=== PATIENT | male | born 1985 | race Hispanic/Latino ===

== ENCOUNTER 2022-02-11 18:32 | Inpatient (IN) | payer SELFPAY ==
[~2022-02-11] VITALS: Ht 167.6 cm; Wt 72.3 kg
[2022-02-11 19:23] LABS: BASOPHILS % 0.7 % (0.0-1.0); HEMATOCRIT 26.3 % (38.2-49.6); HEMOGLOBIN 7.7 g/dL (14.0-18.0); LYMPHOCYTES # (AUTO) 0.6 (1.0-3.2); MEAN CORPUSCULAR HEMOGLOBIN 20.3 pg (28-32); MEAN CORPUSCULAR HGB CONC 29.3 g/dL (31-35); MEAN CORPUSCULAR VOLUME 69.4 fL (81-99); MONOCYTES # (AUTO) 0.3 (0.2-0.8); MONOCYTES % 8.2 % (4.4-11.3); NEUTROPHILS # (AUTO) 3.2 (2.1-6.9); NEUTROPHILS % 76.9 % (38.7-80.0); PLATELET COUNT 65 x10e3/uL (140-360); RED BLOOD COUNT 3.79 x10e6/uL (4.3-5.7); RED CELL DISTRIBUTION WIDTH 22.7 % (11.7-14.4)
[2022-02-11 19:28] LABS: INR 1.64; PARTIAL THROMBOPLASTIN TIME 29.6 seconds (23.8-35.5); PROTHROMBIN TIME 20.8 seconds (11.9-14.5)
[2022-02-11 19:40] LABS: ALBUMIN 2.2 g/dL (3.5-5.0); ALBUMIN/GLOBULIN RATIO 0.8 (0.8-2.0); ANION GAP 12.2 mmol/L (8-16); CREATININE, SERUM 0.74 mg/dL (0.72-1.25); POTASSIUM 4.2 mmol/L (3.5-5.1)
[2022-02-11] MEDS: OCTREOTIDE ACETATE 500 MCG in SODIUM CHLORIDE 0.9% 250ML 250 ML IV SCH (19:55)
[2022-02-11 19:56] LABS: CALCIUM 6.9 mg/dL (8.4-10.2)
[2022-02-11] MEDS ORDERED: IOPAMIDOL 370 MG/ML 100 ML INFUS..BTL INJ ONE (20:31)
[2022-02-11] MEDS ORDERED: SODIUM CHLORIDE 0.9% 250ML 250 ML IV ONE (22:30)
[2022-02-11] MEDS ORDERED: POTASSIUM CHLORIDE 20 MEQ TAB CR PO PRN (23:00)
[2022-02-11] MEDS ORDERED: DIPHENHYDRAMINE HCL 25 MG CAP PO PRN (23:00)
[2022-02-11] MEDS ORDERED: DEXTROSE 50% SYRINGE 50 ML IV PRN (23:00)
[2022-02-11] MEDS ORDERED: ONDANSETRON HCL INJ 2MG/ML 2ML 2 MG/ML VIAL IV PRN (23:00)
[2022-02-11] MEDS ORDERED: MELATONIN 5 MG TABLET PO PRN (23:00)
[2022-02-11] MEDS ORDERED: BENZONATATE 100 MG CAP PO PRN (23:00)
[2022-02-11] MEDS ORDERED: SIMETHICONE 80 MG CHEW PO PRN (23:00)
[2022-02-11] MEDS ORDERED: HYDRALAZINE HCL 20 MG/ML VIAL IV PRN (23:00)
[2022-02-11] MEDS ORDERED: DOCUSATE SODIUM 100 MG CAP PO PRN (23:00)
[2022-02-11] MEDS ORDERED: ALBUTEROL/IPRATROPIUM 3 ML NEB NEB PRN (23:00)
[2022-02-11] MEDS ORDERED: PHYTONADIONE 10 MG/ML AMP SQ ONE (23:00)
[2022-02-12] VITALS (43 sets, daily range): BP systolic 86–121; BP diastolic 44–89
[2022-02-12] MEDS ORDERED: ALBUMIN 25% 25GM 100ML 0.25 GM/ML BTL IV SCH
[2022-02-12] MEDS ORDERED: SODIUM CHLORIDE 0.9% 250ML 250 ML ONE ×3 (00:02→06:26)
[2022-02-12] MEDS: SODIUM CHLORIDE 0.9% 1000ML 1,000 ML IV SCH ×2 (00:09→06:35)
[2022-02-12 00:29] LABS: HEMATOCRIT 23.6 % (38.2-49.6)
[2022-02-12 00:30] LABS: HEMOGLOBIN 6.9 g/dL (14.0-18.0)
[2022-02-12] MEDS ORDERED: [UNRECOGNIZED DRUG - OTHER] IV ONE ×2 (00:30→04:30)
[2022-02-12] MEDS ORDERED: SODIUM CHLORIDE 0.9% IV ONE ×2 (00:30→04:30)
[2022-02-12] MEDS ORDERED: MULTIVITAMINS- 12 INJECTION 10 ML, FOLIC ACID MDV 1 MG, THIAMINE HCL INJ 100 MG in SODI... IV SCH (00:30)
[2022-02-12] MEDS ORDERED: METOCLOPRAMIDE HCL 10 MG/2ML VIAL IV STA (02:46)
[2022-02-12] MEDS ORDERED: CEFTRIAXONE 1 GM VIAL IM ONE (05:00)
[2022-02-12] MEDS: ALBUMIN 25% 25GM 100ML 0.25 GM/ML BTL IV SCH ×4 (05:41→23:55)
[2022-02-12] MEDS: METOCLOPRAMIDE HCL 10 MG/2ML VIAL IV SCH ×4 (05:41→23:55)
[2022-02-12] MEDS: MIDODRINE 2.5 MG TAB PO SCH ×5 (05:42→23:56)
[2022-02-12 05:56] LABS: BASOPHILS % 0.6 % (0.0-1.0); EOSINOPHILS # (AUTO) 0.1 (0.0-0.4); EOSINOPHILS % 3.2 % (0.0-6.0); HEMATOCRIT 18.7 % (38.2-49.6); LYMPHOCYTES # (AUTO) 0.4 (1.0-3.2); LYMPHOCYTES % 11.6 % (18.0-39.1); MEAN CORPUSCULAR HEMOGLOBIN 20.2 pg (28-32); MEAN CORPUSCULAR HGB CONC 29.4 g/dL (31-35); MEAN CORPUSCULAR VOLUME 68.8 fL (81-99); MONOCYTES # (AUTO) 0.2 (0.2-0.8); MONOCYTES % 6.8 % (4.4-11.3); NEUTROPHILS # (AUTO) 2.4 (2.1-6.9); NEUTROPHILS % 77.5 % (38.7-80.0); RED BLOOD COUNT 2.72 x10e6/uL (4.3-5.7); RED CELL DISTRIBUTION WIDTH 22.2 % (11.7-14.4)
[2022-02-12 06:05] LABS: INR 1.3; PROTHROMBIN TIME 17.3 seconds (11.9-14.5)
[2022-02-12 06:09] LABS: HEMOGLOBIN 5.5 g/dL (14.0-18.0)
[2022-02-12 06:10] LABS: PLATELET COUNT 41 x10e3/uL (140-360)
[2022-02-12 06:14] LABS: ANION GAP 11.1 mmol/L (8-16); CALCIUM 7.3 mg/dL (8.4-10.2); CHOL/HDL RATIO 2.7 (3.9-4.7); CREATININE, SERUM 0.73 mg/dL (0.72-1.25); MAGNESIUM 1.7 MG/DL (1.3-2.1); PHOSPHORUS 2.7 MG/DL (2.3-4.7); POTASSIUM 4.1 mmol/L (3.5-5.1)
[2022-02-12 06:35] LABS: THYROID STIMULATING HORMONE 0.155 uIU/mL (0.350-4.940)
[2022-02-12] MEDS: OCTREOTIDE ACETATE 500 MCG in SODIUM CHLORIDE 0.9% 250ML 250 ML IV SCH ×2 (06:45→17:56)
[2022-02-12] MEDS: ACETAMINOPHEN 325 MG TAB PO PRN (07:03)
[2022-02-12] MEDS ORDERED: THIAMINE HCL INJ 100 MG/ML 2ML VIAL IV ONE (09:00)
[2022-02-12] MEDS: MULTIVITAMINS- 12 INJECTION 10 ML, FOLIC ACID MDV 1 MG, THIAMINE HCL INJ 100 MG in SODI... IV SCH (09:11)
[2022-02-12] MEDS: CHLORDIAZEPOXIDE HCL 25 MG CAP PO PRN ×2 (09:27→20:46)
[2022-02-12] MEDS ORDERED: SODIUM CHLORIDE 0.9% 1000ML 1,000 ML ONE (09:32)
[2022-02-12] MEDS ORDERED: THIAMINE HCL INJ 100 MG/ML 2ML VIAL ONE (09:32)
[2022-02-12 11:41] LABS: PLATELET ESTIMATE MARKEDLY DECREASED; PLATELET MORPHOLOGY COMMENT NORMAL
[2022-02-12 11:44] LABS: ANISOCYTOSIS SLIGHT; HYPOCHROMASIA MODERATE; POIKILOCYTOSIS SLIGHT
[2022-02-12 11:45] LABS: MICROCYTOSIS MODERATE
[2022-02-12 11:46] LABS: OVALOCYTES FEW; RBC MORPHOLOGY COMMENT ABNORMAL
[2022-02-12 12:51] LABS: HEMATOCRIT 19.6 % (38.2-49.6); HEMOGLOBIN 5.9 g/dL (14.0-18.0)
[2022-02-12] MEDS ORDERED: SODIUM CHLORIDE 0.9% 250ML 250 ML IV ONE (13:00)
[2022-02-12 13:04] LABS: BASOPHILS % 0.5 % (0.0-1.0); EOSINOPHILS # (AUTO) 0.1 (0.0-0.4); EOSINOPHILS % 4.1 % (0.0-6.0); LYMPHOCYTES # (AUTO) 0.3 (1.0-3.2); LYMPHOCYTES % 16.4 % (18.0-39.1); MEAN CORPUSCULAR HEMOGLOBIN 22.3 pg (28-32); MEAN CORPUSCULAR HGB CONC 30.1 g/dL (31-35); MEAN CORPUSCULAR VOLUME 74.2 fL (81-99); MONOCYTES # (AUTO) 0.2 (0.2-0.8); MONOCYTES % 9.7 % (4.4-11.3); NEUTROPHILS # (AUTO) 1.3 (2.1-6.9); NEUTROPHILS % 68.8 % (38.7-80.0); RED BLOOD COUNT 2.64 x10e6/uL (4.3-5.7); RED CELL DISTRIBUTION WIDTH 24.1 % (11.7-14.4)
[2022-02-12 13:31] LABS: HEMOGLOBIN 5.9 g/dL (14.0-18.0)
[2022-02-12 13:32] LABS: HEMATOCRIT 19.6 % (38.2-49.6); PLATELET COUNT 32 x10e3/uL (140-360)
[2022-02-12 14:57] LABS: EOSINOPHILS % (MANUAL) 1 % (0-7); LYMPHOCYTES % (MANUAL) 12 % (19-48); MONOCYTES % (MANUAL) 3 % (3.4-9.0); NEUTROPHILS % (MANUAL) 84 % (40-74); PLATELET ESTIMATE MARKEDLY DECREASED
[2022-02-12 14:58] LABS: PLATELET MORPHOLOGY COMMENT NORMAL; RBC MORPHOLOGY COMMENT NORMAL
[2022-02-12 19:45] LABS: CLARITY,URINE CLEAR (CLEAR); COLOR,URINE YELLOW (YELLOW); KETONES,URINE NEGATIVE (NEGATIVE); LEUKOCYTE ESTERASE ,URINE NEGATIVE (NEGATIVE); NITRITE,URINE NEGATIVE (NEGATIVE); PROTEIN,URINE DIPSTICK NEGATIVE (NEGATIVE); URINE UROBILINOGEN 0.2 mg/dL (0.2 - 1)
[2022-02-12 19:46] LABS: BACTERIA,URINE RARE /HPF; EPITHELIAL CELLS,URINE FEW /LPF; WBC,URINE (MAN) 0-5 /HPF (0-5)
[2022-02-12 21:27] LABS: BASOPHILS % 0.9 % (0.0-1.0); EOSINOPHILS # (AUTO) 0.1 (0.0-0.4); EOSINOPHILS % 3.2 % (0.0-6.0); HEMOGLOBIN 7.9 g/dL (14.0-18.0); LYMPHOCYTES # (AUTO) 0.4 (1.0-3.2); LYMPHOCYTES % 19.4 % (18.0-39.1); MEAN CORPUSCULAR HEMOGLOBIN 23.2 pg (28-32); MEAN CORPUSCULAR HGB CONC 30.4 g/dL (31-35); MEAN CORPUSCULAR VOLUME 76.5 fL (81-99); MONOCYTES # (AUTO) 0.3 (0.2-0.8); MONOCYTES % 12.5 % (4.4-11.3); NEUTROPHILS # (AUTO) 1.4 (2.1-6.9); NEUTROPHILS % 63.5 % (38.7-80.0); RED CELL DISTRIBUTION WIDTH 23.7 % (11.7-14.4)
[2022-02-12 21:28] LABS: PLATELET COUNT 30 x10e3/uL (140-360)
[2022-02-13] VITALS (26 sets, daily range): BP systolic 101–125; BP diastolic 43–98
[2022-02-13 00:15] LABS: BASOPHILS % 1.1 % (0.0-1.0); EOSINOPHILS # (AUTO) 0.1 (0.0-0.4); EOSINOPHILS % 3.3 % (0.0-6.0); HEMATOCRIT 26.5 % (38.2-49.6); HEMOGLOBIN 8.4 g/dL (14.0-18.0); LYMPHOCYTES # (AUTO) 0.6 (1.0-3.2); MEAN CORPUSCULAR HEMOGLOBIN 23.7 pg (28-32); MEAN CORPUSCULAR HGB CONC 31.7 g/dL (31-35); MEAN CORPUSCULAR VOLUME 74.9 fL (81-99); MONOCYTES # (AUTO) 0.3 (0.2-0.8); MONOCYTES % 11.4 % (4.4-11.3); NEUTROPHILS # (AUTO) 1.7 (2.1-6.9); NEUTROPHILS % 62.8 % (38.7-80.0); RED BLOOD COUNT 3.54 x10e6/uL (4.3-5.7); RED CELL DISTRIBUTION WIDTH 23.2 % (11.7-14.4)
[2022-02-13 00:38] LABS: PLATELET COUNT 28 x10e3/uL (140-360)
[2022-02-13] MEDS: OCTREOTIDE ACETATE 500 MCG in SODIUM CHLORIDE 0.9% 250ML 250 ML IV SCH ×3 (03:20→19:57)
[2022-02-13] MEDS ORDERED: PHYTONADIONE 10 MG/ML AMP IV ONE (03:45)
[2022-02-13] MEDS ORDERED: PHYTONADIONE 10MG/ML 1 ML ONE (04:50)
[2022-02-13] MEDS: METOCLOPRAMIDE HCL 10 MG/2ML VIAL IV SCH ×4 (04:59→23:39)
[2022-02-13] MEDS: MULTIVITAMINS- 12 INJECTION 10 ML, FOLIC ACID MDV 1 MG, THIAMINE HCL INJ 100 MG in SODI... IV SCH (05:00)
[2022-02-13] MEDS: ALBUMIN 25% 25GM 100ML 0.25 GM/ML BTL IV SCH (05:00)
[2022-02-13] MEDS: MIDODRINE 2.5 MG TAB PO SCH (05:31)
[2022-02-13 07:15] LABS: BASOPHILS % 0.7 % (0.0-1.0); EOSINOPHILS % 1.3 % (0.0-6.0); HEMATOCRIT 26.6 % (38.2-49.6); HEMOGLOBIN 8.5 g/dL (14.0-18.0); LYMPHOCYTES # (AUTO) 0.5 (1.0-3.2); LYMPHOCYTES % 18.1 % (18.0-39.1); MEAN CORPUSCULAR HEMOGLOBIN 23.9 pg (28-32); MEAN CORPUSCULAR VOLUME 74.9 fL (81-99); MONOCYTES # (AUTO) 0.3 (0.2-0.8); MONOCYTES % 10.7 % (4.4-11.3); NEUTROPHILS # (AUTO) 2.1 (2.1-6.9); NEUTROPHILS % 68.5 % (38.7-80.0); RED BLOOD COUNT 3.55 x10e6/uL (4.3-5.7); RED CELL DISTRIBUTION WIDTH 23.7 % (11.7-14.4)
[2022-02-13 07:19] LABS: INR 1.5; PLATELET COUNT 32 x10e3/uL (140-360); PROTHROMBIN TIME 19.4 seconds (11.9-14.5)
[2022-02-13 07:26] LABS: ALBUMIN 3.7 g/dL (3.5-5.0); ALBUMIN/GLOBULIN RATIO 1.6 (0.8-2.0); ANION GAP 11.5 mmol/L (8-16); CALCIUM 7.7 mg/dL (8.4-10.2); CREATININE, SERUM 0.71 mg/dL (0.72-1.25); POTASSIUM 3.5 mmol/L (3.5-5.1)
[2022-02-13] MEDS ORDERED: PHYTONADIONE 10 MG/ML AMP SQ ONE (10:30)
[2022-02-13] MEDS: MIDODRINE HCL 5 MG TABLET PO SCH ×3 (11:37→23:39)
[2022-02-13] MEDS ORDERED: ALBUMIN 25% 12.5GM 0.25 GM/ML BTL IV SCH (12:00)
[2022-02-13] MEDS: CHLORDIAZEPOXIDE HCL 25 MG CAP PO PRN (12:48)
[2022-02-13 13:21] LABS: BASOPHILS % 0.6 % (0.0-1.0); EOSINOPHILS % 1.3 % (0.0-6.0); HEMATOCRIT 27.1 % (38.2-49.6); HEMOGLOBIN 8.4 g/dL (14.0-18.0); LYMPHOCYTES # (AUTO) 0.5 (1.0-3.2); LYMPHOCYTES % 15.3 % (18.0-39.1); MEAN CORPUSCULAR HEMOGLOBIN 23.7 pg (28-32); MEAN CORPUSCULAR VOLUME 76.3 fL (81-99); MONOCYTES # (AUTO) 0.3 (0.2-0.8); MONOCYTES % 10.2 % (4.4-11.3); NEUTROPHILS # (AUTO) 2.3 (2.1-6.9); NEUTROPHILS % 72.3 % (38.7-80.0); RED BLOOD COUNT 3.55 x10e6/uL (4.3-5.7); RED CELL DISTRIBUTION WIDTH 23.9 % (11.7-14.4)
[2022-02-13 13:28] LABS: PLATELET COUNT 37 x10e3/uL (140-360)
[2022-02-13] MEDS ORDERED: SODIUM CHLORIDE 0.9% 250ML 250 ML ONE (14:24)
[2022-02-13 18:16] LABS: HEMATOCRIT 26.3 % (38.2-49.6); HEMOGLOBIN 8.1 g/dL (14.0-18.0); MEAN CORPUSCULAR HEMOGLOBIN 23.8 pg (28-32); MEAN CORPUSCULAR HGB CONC 30.8 g/dL (31-35); MEAN CORPUSCULAR VOLUME 77.1 fL (81-99); RED BLOOD COUNT 3.41 x10e6/uL (4.3-5.7); RED CELL DISTRIBUTION WIDTH 24.1 % (11.7-14.4)
[2022-02-13 18:18] LABS: PLATELET COUNT 50 x10e3/uL (140-360)
[2022-02-13 18:22] LABS: RETICULOCYTE % 2.8 % (0.8-2.2)
[2022-02-13 19:26] LABS: FERRITIN 25.05 ng/mL (21.81-274.66)
[2022-02-13 20:03] LABS: EOSINOPHILS % (MANUAL) 1 % (0-7); LYMPHOCYTES % (MANUAL) 15 % (19-48); MONOCYTES % (MANUAL) 11 % (3.4-9.0); NEUTROPHILS % (MANUAL) 73 % (40-74)
[2022-02-13 20:05] LABS: PLATELET ESTIMATE MARKEDLY DECREASED; PLATELET MORPHOLOGY COMMENT NORMAL; RBC MORPHOLOGY COMMENT NORMAL
[2022-02-14] VITALS (28 sets, daily range): BP systolic 94–157; BP diastolic 59–103
[2022-02-14 00:15] LABS: BASOPHILS % 0.6 % (0.0-1.0); EOSINOPHILS # (AUTO) 0.1 (0.0-0.4); EOSINOPHILS % 1.8 % (0.0-6.0); HEMATOCRIT 27.2 % (38.2-49.6); HEMOGLOBIN 8.4 g/dL (14.0-18.0); LYMPHOCYTES # (AUTO) 0.6 (1.0-3.2); LYMPHOCYTES % 16.6 % (18.0-39.1); MEAN CORPUSCULAR HEMOGLOBIN 23.8 pg (28-32); MEAN CORPUSCULAR HGB CONC 30.9 g/dL (31-35); MEAN CORPUSCULAR VOLUME 77.1 fL (81-99); MONOCYTES # (AUTO) 0.3 (0.2-0.8); MONOCYTES % 10.1 % (4.4-11.3); NEUTROPHILS # (AUTO) 2.4 (2.1-6.9); NEUTROPHILS % 70.3 % (38.7-80.0); RED BLOOD COUNT 3.53 x10e6/uL (4.3-5.7); RED CELL DISTRIBUTION WIDTH 24.4 % (11.7-14.4)
[2022-02-14 00:17] LABS: PLATELET COUNT 40 x10e3/uL (140-360)
[2022-02-14] MEDS ORDERED: PROPRANOLOL HCL 40 MG TAB PO STA (00:24)
[2022-02-14] MEDS ORDERED: PROPRANOLOL HCL 10 MG TAB PO STA (00:47)
[2022-02-14] MEDS: MULTIVITAMINS- 12 INJECTION 10 ML, FOLIC ACID MDV 1 MG, THIAMINE HCL INJ 100 MG in SODI... IV SCH (00:56)
[2022-02-14] MEDS: MIDODRINE HCL 5 MG TABLET PO SCH ×3 (05:52→18:30)
[2022-02-14] MEDS: METOCLOPRAMIDE HCL 10 MG/2ML VIAL IV SCH ×3 (05:53→18:30)
[2022-02-14 06:18] LABS: BASOPHILS % 1.1 % (0.0-1.0); EOSINOPHILS # (AUTO) 0.1 (0.0-0.4); HEMATOCRIT 27.8 % (38.2-49.6); HEMOGLOBIN 8.6 g/dL (14.0-18.0); LYMPHOCYTES # (AUTO) 0.6 (1.0-3.2); MEAN CORPUSCULAR HEMOGLOBIN 23.7 pg (28-32); MEAN CORPUSCULAR HGB CONC 30.9 g/dL (31-35); MEAN CORPUSCULAR VOLUME 76.6 fL (81-99); MONOCYTES # (AUTO) 0.4 (0.2-0.8); MONOCYTES % 11.3 % (4.4-11.3); NEUTROPHILS # (AUTO) 2.4 (2.1-6.9); NEUTROPHILS % 68.3 % (38.7-80.0); PLATELET COUNT 53 x10e3/uL (140-360); RED BLOOD COUNT 3.63 x10e6/uL (4.3-5.7); RED CELL DISTRIBUTION WIDTH 24.6 % (11.7-14.4)
[2022-02-14 06:32] LABS: INR 1.57; PROTHROMBIN TIME 20.1 seconds (11.9-14.5)
[2022-02-14 06:38] LABS: ALBUMIN 3.5 g/dL (3.5-5.0); ALBUMIN/GLOBULIN RATIO 1.5 (0.8-2.0); ANION GAP 12.7 mmol/L (8-16); CALCIUM 7.5 mg/dL (8.4-10.2); CREATININE, SERUM 0.77 mg/dL (0.72-1.25); POTASSIUM 3.7 mmol/L (3.5-5.1)
[2022-02-14] MEDS: OCTREOTIDE ACETATE 500 MCG in SODIUM CHLORIDE 0.9% 250ML 250 ML IV SCH ×2 (07:32→16:04)
[2022-02-14] MEDS ORDERED: IRON SUCROSE 100 MG in SODIUM CHLORIDE 0.9% 100 ML 100 ML IV SCH (09:00)
[2022-02-14] MEDS ORDERED: SODIUM CHLORIDE 0.9% 250ML 250 ML ONE (10:42)
[2022-02-14] MEDS: PROPRANOLOL HCL 10 MG TAB PO SCH (11:29)
[2022-02-14 12:24] LABS: BASOPHILS % 0.7 % (0.0-1.0); EOSINOPHILS # (AUTO) 0.1 (0.0-0.4); HEMATOCRIT 28.4 % (38.2-49.6); HEMOGLOBIN 8.7 g/dL (14.0-18.0); LYMPHOCYTES # (AUTO) 0.5 (1.0-3.2); LYMPHOCYTES % 17.6 % (18.0-39.1); MEAN CORPUSCULAR HEMOGLOBIN 23.7 pg (28-32); MEAN CORPUSCULAR HGB CONC 30.6 g/dL (31-35); MEAN CORPUSCULAR VOLUME 77.4 fL (81-99); MONOCYTES # (AUTO) 0.4 (0.2-0.8); MONOCYTES % 12.7 % (4.4-11.3); NEUTROPHILS % 66.7 % (38.7-80.0); PLATELET COUNT 56 x10e3/uL (140-360); RED BLOOD COUNT 3.67 x10e6/uL (4.3-5.7); RED CELL DISTRIBUTION WIDTH 25.1 % (11.7-14.4)
[2022-02-14] MEDS ORDERED: PROPOFOL IV EMULSION 10 MG/ML 20 ML VIAL ONE (12:31)
[2022-02-14] MEDS ORDERED: POVIDONE IODINE 0.05% 0.05 % ML PO ONE (12:31)
[2022-02-14] MEDS ORDERED: LIDOCAINE HCL 2% LOCAL INJ 5 ML SDV VIAL INJ ONE (12:31)
[2022-02-14] MEDS: IRON SUCROSE 100 MG in SODIUM CHLORIDE 0.9% 100 ML IV SCH (12:33)
[2022-02-14] MEDS ORDERED: FENTANYL CITRATE/PF 100MCG/2 ML INJ ONE (13:11)
[2022-02-14] MEDS ORDERED: SODIUM CHLORIDE 0.9% 1000ML 1,000 ML ONE (14:16)
[2022-02-14 18:20] LABS: BASOPHILS % 1.2 % (0.0-1.0); EOSINOPHILS # (AUTO) 0.1 (0.0-0.4); EOSINOPHILS % 1.9 % (0.0-6.0); HEMATOCRIT 26.9 % (38.2-49.6); HEMOGLOBIN 8.2 g/dL (14.0-18.0); LYMPHOCYTES # (AUTO) 0.5 (1.0-3.2); LYMPHOCYTES % 17.8 % (18.0-39.1); MEAN CORPUSCULAR HEMOGLOBIN 23.9 pg (28-32); MEAN CORPUSCULAR HGB CONC 30.5 g/dL (31-35); MEAN CORPUSCULAR VOLUME 78.4 fL (81-99); MONOCYTES # (AUTO) 0.4 (0.2-0.8); MONOCYTES % 15.5 % (4.4-11.3); NEUTROPHILS # (AUTO) 1.6 (2.1-6.9); NEUTROPHILS % 63.6 % (38.7-80.0); RED BLOOD COUNT 3.43 x10e6/uL (4.3-5.7); RED CELL DISTRIBUTION WIDTH 25.1 % (11.7-14.4)
[2022-02-14 18:23] LABS: PLATELET COUNT 69 x10e3/uL (140-360)
[2022-02-15] VITALS (18 sets, daily range): BP systolic 100–127; BP diastolic 65–91
[2022-02-15] MEDS: METOCLOPRAMIDE HCL 10 MG/2ML VIAL IV SCH ×4 (00:31→17:30)
[2022-02-15] MEDS: MIDODRINE HCL 5 MG TABLET PO SCH ×3 (00:31→12:56)
[2022-02-15] MEDS: OCTREOTIDE ACETATE 500 MCG in SODIUM CHLORIDE 0.9% 250ML 250 ML IV SCH ×3 (00:32→19:53)
[2022-02-15] MEDS: MULTIVITAMINS- 12 INJECTION 10 ML, FOLIC ACID MDV 1 MG, THIAMINE HCL INJ 100 MG in SODI... IV SCH ×2 (00:32→19:54)
[2022-02-15 06:05] LABS: BASOPHILS % 0.9 % (0.0-1.0); EOSINOPHILS % 1.9 % (0.0-6.0); HEMATOCRIT 29.9 % (38.2-49.6); HEMOGLOBIN 9.1 g/dL (14.0-18.0); LYMPHOCYTES # (AUTO) 0.5 (1.0-3.2); LYMPHOCYTES % 24.8 % (18.0-39.1); MEAN CORPUSCULAR HEMOGLOBIN 23.7 pg (28-32); MEAN CORPUSCULAR HGB CONC 30.4 g/dL (31-35); MEAN CORPUSCULAR VOLUME 77.9 fL (81-99); MONOCYTES # (AUTO) 0.4 (0.2-0.8); MONOCYTES % 16.8 % (4.4-11.3); NEUTROPHILS # (AUTO) 1.2 (2.1-6.9); NEUTROPHILS % 55.1 % (38.7-80.0); PLATELET COUNT 68 x10e3/uL (140-360); RED BLOOD COUNT 3.84 x10e6/uL (4.3-5.7); RED CELL DISTRIBUTION WIDTH 25.2 % (11.7-14.4)
[2022-02-15 06:32] LABS: ANION GAP 11.6 mmol/L (8-16); CALCIUM 7.6 mg/dL (8.4-10.2); CREATININE, SERUM 0.75 mg/dL (0.72-1.25); POTASSIUM 3.6 mmol/L (3.5-5.1)
[2022-02-15 08:22] LABS: ANISOCYTOSIS MODERATE; HYPOCHROMASIA MODERATE; MICROCYTOSIS SLIGHT; OVALOCYTES FEW; POIKILOCYTOSIS MODERATE
[2022-02-15 08:23] LABS: PLATELET ESTIMATE MARKEDLY DECREASED; PLATELET MORPHOLOGY COMMENT NORMAL; RBC MORPHOLOGY COMMENT ABNORMAL
[2022-02-15] MEDS: PROPRANOLOL HCL 10 MG TAB PO SCH (09:00)
[2022-02-15] MEDS: IRON SUCROSE 100 MG in SODIUM CHLORIDE 0.9% 100 ML IV SCH (12:56)
[2022-02-15 15:43] LABS: INR 1.59; PROTHROMBIN TIME 20.3 seconds (11.9-14.5)
[2022-02-15 15:44] LABS: PARTIAL THROMBOPLASTIN TIME 37.5 seconds (23.8-35.5)
[2022-02-15] MEDS ORDERED: MIDODRINE HCL 5 MG TABLET PO SCH ×2 (17:00→18:00)
[2022-02-16] VITALS (7 sets, daily range): BP systolic 100–120; BP diastolic 57–82
[2022-02-16] MEDS: METOCLOPRAMIDE HCL 10 MG/2ML VIAL IV SCH ×3 (00:07→12:17)
[2022-02-16 05:28] LABS: BASOPHILS % 0.9 % (0.0-1.0); EOSINOPHILS % 1.9 % (0.0-6.0); HEMATOCRIT 27.1 % (38.2-49.6); HEMOGLOBIN 8.4 g/dL (14.0-18.0); LYMPHOCYTES # (AUTO) 0.5 (1.0-3.2); LYMPHOCYTES % 22.7 % (18.0-39.1); MEAN CORPUSCULAR HEMOGLOBIN 24.1 pg (28-32); MEAN CORPUSCULAR VOLUME 77.7 fL (81-99); MONOCYTES # (AUTO) 0.4 (0.2-0.8); MONOCYTES % 17.1 % (4.4-11.3); NEUTROPHILS # (AUTO) 1.2 (2.1-6.9); NEUTROPHILS % 56.9 % (38.7-80.0); PLATELET COUNT 63 x10e3/uL (140-360); RED BLOOD COUNT 3.49 x10e6/uL (4.3-5.7); RED CELL DISTRIBUTION WIDTH 25.3 % (11.7-14.4)
[2022-02-16 05:46] LABS: ALBUMIN 3.4 g/dL (3.5-5.0); ALBUMIN/GLOBULIN RATIO 1.1 (0.8-2.0); ANION GAP 13.5 mmol/L (8-16); CALCIUM 7.7 mg/dL (8.4-10.2); CREATININE, SERUM 0.82 mg/dL (0.72-1.25); POTASSIUM 3.5 mmol/L (3.5-5.1)
[2022-02-16] MEDS: PROPRANOLOL HCL 10 MG TAB PO SCH (12:00)
[2022-02-16] MEDS: MIDODRINE HCL 5 MG TABLET PO SCH ×2 (12:17→18:01)
[2022-02-16] MEDS: TRAMADOL HCL 50 MG TAB PO PRN (12:19)
[2022-02-16] MEDS: IRON SUCROSE 100 MG in SODIUM CHLORIDE 0.9% 100 ML IV SCH (12:42)
[2022-02-16] MEDS ORDERED: PANTOPRAZOLE SO40 MG PO ×2 (13:35→13:38)
[2022-02-16] MEDS ORDERED: INDERAL10 MG PO (13:35)
[2022-02-16] MEDS ORDERED: MIDODRINE HCL5 MG PO (13:44)
[2022-02-16] MEDS: MULTIVITAMINS- 12 INJECTION 10 ML, FOLIC ACID MDV 1 MG, THIAMINE HCL INJ 100 MG in SODI... IV SCH (14:10)
[2022-02-16] MEDS: ACETAMINOPHEN 325 MG TAB PO PRN (16:25)
[2022-02-16] MEDS ORDERED: PANTOPRAZOLE SOD 40 MG TABEC PO SCH (17:00)
[2022-02-16] MEDS: METOCLOPRAMIDE HCL 10 MG TAB PO SCH (18:01)
[2022-02-16] MEDS: PANTOPRAZOLE SOD 40 MG TABEC PO SCH (18:01)
[2022-02-17] VITALS (7 sets, daily range): BP systolic 90–124; BP diastolic 54–73
[2022-02-17] MEDS: METOCLOPRAMIDE HCL 10 MG TAB PO SCH ×5 (00:40→22:51)
[2022-02-17 05:08] LABS: BASOPHILS % 0.9 % (0.0-1.0); EOSINOPHILS # (AUTO) 0.1 (0.0-0.4); EOSINOPHILS % 1.6 % (0.0-6.0); HEMATOCRIT 31.9 % (38.2-49.6); HEMOGLOBIN 9.9 g/dL (14.0-18.0); LYMPHOCYTES # (AUTO) 0.7 (1.0-3.2); LYMPHOCYTES % 20.6 % (18.0-39.1); MEAN CORPUSCULAR HEMOGLOBIN 23.8 pg (28-32); MEAN CORPUSCULAR VOLUME 76.7 fL (81-99); MONOCYTES # (AUTO) 0.6 (0.2-0.8); MONOCYTES % 18.7 % (4.4-11.3); NEUTROPHILS # (AUTO) 1.8 (2.1-6.9); NEUTROPHILS % 57.9 % (38.7-80.0); PLATELET COUNT 74 x10e3/uL (140-360); RED BLOOD COUNT 4.16 x10e6/uL (4.3-5.7); RED CELL DISTRIBUTION WIDTH 25.8 % (11.7-14.4)
[2022-02-17 05:26] LABS: ALBUMIN 3.2 g/dL (3.5-5.0); ALBUMIN/GLOBULIN RATIO 1.1 (0.8-2.0); ANION GAP 13.8 mmol/L (8-16); CALCIUM 7.4 mg/dL (8.4-10.2); CREATININE, SERUM 0.83 mg/dL (0.72-1.25); POTASSIUM 3.8 mmol/L (3.5-5.1)
[2022-02-17] MEDS: PROPRANOLOL HCL 10 MG TAB PO SCH (08:34)
[2022-02-17] MEDS: PANTOPRAZOLE SOD 40 MG TABEC PO SCH ×2 (08:41→16:44)
[2022-02-17] MEDS: MIDODRINE HCL 5 MG TABLET PO SCH ×2 (08:42→16:44)
[2022-02-17] MEDS: MULTIVITAMINS- 12 INJECTION 10 ML, FOLIC ACID MDV 1 MG, THIAMINE HCL INJ 100 MG in SODI... IV SCH (11:50)
[2022-02-17] MEDS ORDERED: FLAGYL375 MG PO (13:21)
[2022-02-17] MEDS ORDERED: CEFDINIR300 MG PO (13:22)
[2022-02-17] MEDS: IRON SUCROSE 100 MG in SODIUM CHLORIDE 0.9% 100 ML IV SCH (13:45)
[2022-02-17] MEDS: TRAMADOL HCL 50 MG TAB PO PRN (17:17)
[2022-02-17] MEDS: ACETAMINOPHEN 325 MG TAB PO PRN (19:42)
[2022-02-18] VITALS: BP 105/54
[2022-02-18 04:00] VITALS: BP 95/52
[2022-02-18] MEDS: MULTIVITAMINS- 12 INJECTION 10 ML, FOLIC ACID MDV 1 MG, THIAMINE HCL INJ 100 MG in SODI... IV SCH (05:11)
[2022-02-18] MEDS: METOCLOPRAMIDE HCL 10 MG TAB PO SCH (05:33)
[2022-02-18 06:21] LABS: BASOPHILS % 1.1 % (0.0-1.0); EOSINOPHILS % 0.7 % (0.0-6.0); HEMATOCRIT 29.2 % (38.2-49.6); HEMOGLOBIN 9.3 g/dL (14.0-18.0); LYMPHOCYTES # (AUTO) 0.5 (1.0-3.2); LYMPHOCYTES % 19.1 % (18.0-39.1); MEAN CORPUSCULAR HGB CONC 31.8 g/dL (31-35); MEAN CORPUSCULAR VOLUME 75.3 fL (81-99); MONOCYTES # (AUTO) 0.6 (0.2-0.8); MONOCYTES % 20.6 % (4.4-11.3); NEUTROPHILS # (AUTO) 1.6 (2.1-6.9); NEUTROPHILS % 58.1 % (38.7-80.0); PLATELET COUNT 64 x10e3/uL (140-360); RED BLOOD COUNT 3.88 x10e6/uL (4.3-5.7)
[2022-02-18 08:07] VITALS: BP 104/64
[2022-02-18] MEDS: PANTOPRAZOLE SOD 40 MG TABEC PO SCH (09:07)
[2022-02-18] MEDS: MIDODRINE HCL 5 MG TABLET PO SCH (09:07)
[2022-02-18] MEDS: PROPRANOLOL HCL 10 MG TAB PO SCH (09:08)
[2022-02-18 11:19] VITALS: BP 99/62
== END 2022-02-18 11:23 | disposition home or self-care (01) | DRG 432 ==
LOC: ER 18:37 → ERHOLD 22:40 → ICU 23:47 → MED/SURG 02-16 10:21
PROVIDERS: ADMIT Internal Medicine; ATTEND Internal Medicine
PROC: 06L38CZ Occlusion of Esophageal Vein with Extraluminal Device, Via Natural or Artificial Opening Endoscopic (ICD-10-PCS; principal; 2022-02-12)
PROC: 02HV33Z Insertion of Infusion Device into Superior Vena Cava, Percutaneous Approach (ICD-10-PCS; 2022-02-12)
PROC: 30243K1 Transfusion of Nonautologous Frozen Plasma into Central Vein, Percutaneous Approach (ICD-10-PCS; 2022-02-12)
PROC: 30243N1 Transfusion of Nonautologous Red Blood Cells into Central Vein, Percutaneous Approach (ICD-10-PCS; 2022-02-12)
PROC: 30243R1 Transfusion of Nonautologous Platelets into Central Vein, Percutaneous Approach (ICD-10-PCS; 2022-02-13)
DX: K70.31 Alcoholic cirrhosis of liver with ascites (principal); D65 Disseminated intravascular coagulation [defibrination syndrome]; K29.81 Duodenitis with bleeding; K76.6 Portal hypertension; D62 Acute posthemorrhagic anemia; D61.818 Other pancytopenia; D68.9 Coagulation defect, unspecified; D68.4 Acquired coagulation factor deficiency; K31.89 Other diseases of stomach and duodenum; K29.80 Duodenitis without bleeding; D72.818 Other decreased white blood cell count; I95.89 Other hypotension; K70.10 Alcoholic hepatitis without ascites; F10.20 Alcohol dependence, uncomplicated; Z20.822 Contact with and (suspected) exposure to COVID-19
CPT/HCPCS: 36415; 36569; 43235; 43255; 71045; 74174; 80048; 80053; 80061; 81001; 82607; 82728; 82746; 83036; 83540; 83690; 83735; 84100; 84443; 84466; 85007; 85014; 85018; 85025; 85027; 85045; 85379; 85384; 85610; 85651; 85730; 86850; 86900; 86920; 87040; 93005; 94799; 97139; 99251; 99284; J0696; J1756; J2001; J2353; J2543; J2765; J3010; J3411; J3430; J7030; J7050; P9016; P9017; P9034; P9047; Q9967